=== PATIENT | female | born 1970 | race Caucasian/White ===

== ENCOUNTER 2021-11-02 15:55 | Emergency (ER) | payer MEDICARE, MEDICAID ==
[~2021-11-02] VITALS: Ht 154.9 cm; Wt 129.6 kg
[2021-11-02] MEDS ORDERED: PERM60CR19 TP (18:22)
[2021-11-02] MEDS ORDERED: HYDR-4527 PO (18:24)
[2021-11-02 18:41] VITALS: BP 141/74
== END 2021-11-02 18:53 | disposition home or self-care (01) ==
LOC: EMS 15:55
DX: S40.862A Insect bite (nonvenomous) of left upper arm, initial encounter (principal); S40.861A Insect bite (nonvenomous) of right upper arm, initial encounter; S80.862A Insect bite (nonvenomous), left lower leg, initial encounter; S80.861A Insect bite (nonvenomous), right lower leg, initial encounter; F17.210 Nicotine dependence, cigarettes, uncomplicated; Z59.00 Homelessness unspecified; Z90.710 Acquired absence of both cervix and uterus; W57.XXXA Bitten or stung by nonvenomous insect and other nonvenomous arthropods, initial encounter; Y93.89 Activity, other specified; Y92.89 Other specified places as the place of occurrence of the external cause; Y99.8 Other external cause status
CPT/HCPCS: 99283